=== PATIENT | female | born 1985 | race Caucasian/White ===

== ENCOUNTER → 2017-10-02 | Outpatient (CLI) | payer OTHER ==
[~2017-10-02] MED LIST: PRENTAB26 PO
== END | disposition home or self-care (01) ==
LOC: C.PAPS 07:59
PROVIDERS: ATTEND Obstetrics & Gynecology
DX: Z34.01 Encounter for supervision of normal first pregnancy, first trimester (principal); Z01.419 Encounter for gynecological examination (general) (routine) without abnormal findings

== ENCOUNTER → 2017-10-02 | Outpatient (CLI) | payer OTHER ==
[2017-10-02 13:07] LABS: BASO % 0.2 %; BASO ABS # 0.03 K/uL (0-0.2); EOS % 0.3 %; EOS ABS # 0.05 K/uL (0-0.5); HEMATOCRIT 37.1 % (37-47); HEMOGLOBIN 12.9 g/dL (12.0-16.0); IG# 0.06 K/uL (0.00-0.02); LYMPH % 14.9 %; LYMPH ABS # 2.31 K/uL (1.2-3.4); MEAN CELL VOLUME 87.5 fL (80-100); MEAN CORPUSCULAR HEMOGLOBIN 30.4 pg (25-34); MEAN CORPUSCULAR HGB CONC 34.8 g/dl (32-36); MEAN PLATELET VOLUME 11.8 fL (7.4-10.4); MONO % 6.8 %; MONO ABS # 1.06 K/uL (0.11-0.59); NEUT % 77.4 %; PLATELET COUNT 313 K/uL (130-400); RED CELL DISTRIBUTION WIDTH CV 13.2 % (11.5-14.5); RED CELL DISTRIBUTION WIDTH SD 42.5 fL (36.4-46.3); WHITE BLOOD COUNT 15.51 K/uL (4.8-10.8)
== END | disposition home or self-care (01) ==
LOC: C.LAB1850 11:36
PROVIDERS: ATTEND Obstetrics & Gynecology
DX: Z34.01 Encounter for supervision of normal first pregnancy, first trimester (principal); Z3A.00 Weeks of gestation of pregnancy not specified

== ENCOUNTER → 2017-10-02 | Outpatient (CLI) | payer OTHER | END | disposition home or self-care (01) | LOC: C.LABSPEC 11:01 | PROVIDERS: ATTEND Obstetrics & Gynecology | DX: Z34.01 Encounter for supervision of normal first pregnancy, first trimester (principal); Z3A.00 Weeks of gestation of pregnancy not specified ==

== ENCOUNTER → 2017-11-29 | Outpatient (CLI) | payer OTHER | END | disposition home or self-care (01) | LOC: C.LAB1850 09:46 | PROVIDERS: ATTEND Obstetrics & Gynecology | DX: Z34.02 Encounter for supervision of normal first pregnancy, second trimester (principal) ==

== ENCOUNTER 2018-05-05 19:00 | Outpatient (CLI) | payer OTHER ==
[~2018-05-05] VITALS: Ht 154.9 cm; Wt 61.4 kg
[2018-05-05 19:24] VITALS: Ht 154.9 cm; Wt 61.4 kg
[2018-05-05] MEDS ORDERED: PRENTAB26 PO (20:00)
== END 2018-05-05 21:45 | disposition home or self-care (01) ==
LOC: C.OPB 19:00 → C.LD 19:00 → C.OPB 21:45
PROVIDERS: ATTEND Obstetrics & Gynecology
DX: O36.5930 Maternal care for other known or suspected poor fetal growth, third trimester, not applicable or unspecified (principal); Z3A.38 38 weeks gestation of pregnancy

== ENCOUNTER 2018-05-06 07:33 | Inpatient (IN) | payer OTHER ==
[~2018-05-06] VITALS: Ht 154.9 cm; Wt 61.4 kg
[2018-05-06 08:08] VITALS: Ht 154.9 cm; Wt 61.4 kg
[2018-05-06] MEDS ORDERED: LACTATED RINGER'S 1000ML 1,000 ML IV SCH (08:37)
[2018-05-06] MEDS ORDERED: LACTATED RINGER'S 1000ML 500 ML IV PRN ×2 (08:37→14:32)
[2018-05-06] MEDS ORDERED: LACTATED RINGER'S 1000ML 1,000 ML IV PRN (08:37)
[2018-05-06] MEDS: OXYTOCIN 30 UNITS/500ML NSS IV PRN ×2 (08:54→17:12)
[2018-05-06 09:01] LABS: HEMATOCRIT 31.9 % (37-47); HEMOGLOBIN 10.4 g/dL (12.0-16.0); MEAN CELL VOLUME 83.7 fL (80-100); MEAN CORPUSCULAR HEMOGLOBIN 27.3 pg (25-34); MEAN CORPUSCULAR HGB CONC 32.6 g/dl (32-36); MEAN PLATELET VOLUME 13.3 fL (7.4-10.4); PLATELET COUNT 211 K/uL (130-400); RED CELL DISTRIBUTION WIDTH CV 15.1 % (11.5-14.5); RED CELL DISTRIBUTION WIDTH SD 46.3 fL (36.4-46.3); WHITE BLOOD COUNT 16.15 K/uL (4.8-10.8)
--- NOTE | 2018-05-06 09:36 | Progress Note ---
Progress Note Date of Service May 06, 2018. Progress Note 32yo , BENJA of 05/13/2018, 39.0 weeks GA, here for IUGR induction. course included gestational diabetes and IUGR. Blood type O+, antibody negative , rubella immune, Hep B Negative, GBS-. O: Abdomen: Gravid, vertex, +FHTs : 4.0cm/80%/-1 A/P: 39 weeks GA, IUGR induction, Oxytocin IV, anticipate
[2018-05-06] MEDS ORDERED: FENTANYL CITRATE INJ 50 MCG/1 ML 2 ML VIAL ONE (11:15)
[2018-05-06] MEDS ORDERED: BUPIVACAINE 0.25% 30 ML VIAL ONE (11:15)
[2018-05-06] MEDS ORDERED: EpHEDrine SULFATE INJ 50 MG/ML AMP ONE (11:15)
[2018-05-06] MEDS ORDERED: FENTANYL 2MCG/ML ROPIV 1.25MG/ML 100ML BAG ONE (11:16)
[2018-05-06] MEDS ORDERED: NALOXONE HCL INJ 1 MG in SODIUM CHLORIDE 0.9% 1000ML 1,000 ML IV PRN (14:32)
[2018-05-06] MEDS ORDERED: DiphenhydrAMINE HCL 50 MG/ML VIAL IV PRN (14:45)
[2018-05-06] MEDS ORDERED: NALBUPHINE HCL INJ 10 MG/ML 1ML AMP IV PRN (14:45)
[2018-05-06] MEDS ORDERED: EpHEDrine SULFATE INJ 50 MG/ML AMP IV PRN (14:45)
[2018-05-06] MEDS ORDERED: FENTANYL 2MCG/ML ROPIV 1.25MG/ML 100ML BAG EPI PRN (14:45)
[2018-05-06] MEDS ORDERED: ONDANSETRON INJ 2 MG/ML 2 ML VIAL IV PRN (14:45)
[2018-05-06] MEDS ORDERED: NALOXONE HCL INJ 0.4 MG/1 ML VIAL/CARP IV PRN (14:45)
[2018-05-06] MEDS ORDERED: SUPERCREAM 0.870 % 15GM JAR EXT PRN (16:30)
[2018-05-06] MEDS ORDERED: LANOLIN OINT EXT PRN (16:30)
[2018-05-06] MEDS ORDERED: BENZOCAINE 20% AER SPR 82.5 GM CAN EXT PRN (16:30)
[2018-05-06] MEDS ORDERED: OXYTOCIN 30 UNITS/500ML NSS IV PRN (16:30)
[2018-05-06] MEDS ORDERED: OXYCODONE/ACETAMINOPHEN 5-325 TAB PO PRN (16:30)
--- NOTE | 2018-05-06 17:02 | Anesthesia Procedure Note ---
Anesthesia Epidural Removal Nt Date & Time May 06, 2018 at 17:02 Vital Signs Pain Intensity: 0.0 Notes Mental Status: alert / awake / arousable, participated in evaluation Nausea / Vomiting: adequately controlled Pain: adequately controlled Airway Patency, RR, SpO2: stable & adequate BP & HR: stable & adequate Hydration State: stable & adequate Neuraxial Anesthesia: was administered, sensory block is resolving Anesthetic Complications: no major complications apparent, pt satisfied with anesthetic care Epidural: removed without complications, with tip intact
[2018-05-06] MEDS: IBUPROFEN 600 MG TAB PO PRN ×2 (17:47→22:16)
[2018-05-06] MEDS: DOCUSATE SODIUM 100 MG CAP PO SCH (19:31)
--- NOTE | 2018-05-06 19:43 | DELIVERY SUMMARY ---
DATE OF OPERATION: 05/06/2018 The patient is a 32-year-old white female who presented for induction because of IUGR. Her testing up to this point shows that there was normal fluid as well as reactive nonstress test. She presented for a cervical Teague on the evening of May 05. She presented to labor and delivery at 4 cm dilated the next morning. Pitocin augmentation was begun. Her membranes ruptured for copious amount of clear fluid. She received effective epidural analgesia and then progressed to full dilation. She pushed over intact perineum for delivery of a viable male infant. Mouth and nasopharynx were suctioned after delivery. There was spontaneous crying and the infant was moving all 4 limbs. The infant was placed on the mother's abdomen for further warming and attention. After 30 seconds, the cord was clamped and cut. The placenta was expressed intact with a 3-vessel cord. A second-degree perineal laceration was repaired with 3-0 chromic in the usual fashion. Estimated blood loss was 200 mL. Mother and were doing well after delivery. I attest to the content of the Intraoperative Record and any orders documented therein. Any exception s are noted below.
[2018-05-06 20:10] VITALS: BP 124/78; PULSE 86; TEMP 36.7
[2018-05-06 23:05] VITALS: BP 126/84; PULSE 85; TEMP 36.8
[2018-05-07 04:00] VITALS: BP 122/78; PULSE 94; TEMP 36.8
[2018-05-07] MEDS: IBUPROFEN 600 MG TAB PO PRN ×5 (04:17→23:30)
[2018-05-07] MEDS: ACETAMINOPHEN 325 MG TAB PO PRN ×2 (06:07→15:43)
[2018-05-07 07:05] LABS: HEMATOCRIT 28.3 % (37-47); HEMOGLOBIN 9.2 g/dL (12.0-16.0)
--- NOTE | 2018-05-07 07:14 | Progress Note ---
Subjective May 07, 2018. Subjective conversation w/ patient Ambulation: ambulating normally Voiding: no voiding problems Diet Tolerance: Regular Diet Lochia: Moderate Feeding Type: Breast Feeding Pain: Improving Problem List Medical Problems: (1) 36 weeks gestation of (2) 38 weeks gestation of (3) Decreased movement (4) IUGR (intrauterine growth restriction) affecting care of mother (5) Unfavorable cervix in term Review of Systems Constitutional: No fever, No chills Respiratory: No shortness of breath Cardiac: No chest pain, No palpitations Female : No dysuria Objective Vital Signs Date Time Temp Pulse Resp B/P (MAP) Pulse Ox O2 Delivery O2 Flow Rate FiO2 05/07/18 04:00 36.8 94 18 122/78 (93) Room Air 05/06/18 23:05 36.8 85 18 126/84 (98) Room Air 05/06/18 20:10 36.7 86 18 124/78 (93) Room Air 05/06/18 20:10 Room Air Physical Exam General Appearance: WELL-APPEARING, NO APPARENT DISTRESS Respiratory/Chest: normal breath sounds, no respiratory distress Cardiovascular: regular rate, rhythm Abdomen: soft Fundus: Firm (1 above umbilicus) Extremities: no calf tenderness Laboratory Results Last 24 Hours Test 05/06/18 08:44 05/07/18 06:32 White Blood Count 16.15 K/uL Red Blood Count 3.81 M/uL Hemoglobin 10.4 g/dL 9.2 g/dL Hematocrit 31.9 % 28.3 % Mean Corpuscular Volume 83.7 fL Mean Corpuscular Hemoglobin 27.3 pg Mean Corpuscular Hemoglobin Concent 32.6 g/dl RDW Standard Deviation 46.3 fL RDW Coefficient of Variation 15.1 % Platelet Count 211 K/uL Mean Platelet Volume 13.3 fL Medications Current Inpatient Medications Medications (Trade) Dose Ordered Sig/Claribel Route Start Time Stop Time Status Last Admin Dose Admin Lactated Ringer's 1,000 ml @ 125 mls/hr Q8H IV 05/06/18 08:37 05/08/18 08:36 Lactated Ringer's 1,000 ml @ 999 mls/hr Q1H1M PRN IV 05/06/18 08:37 06/05/18 08:36 Oxytocin (Pitocin IV) 30 units UD PRN IV 05/06/18 08:45 06/05/18 08:44 05/06/18 17:12 30 UNITS Lactated Ringer's 500 ml @ 999 mls/hr Q31M PRN IV 05/06/18 08:37 06/05/18 08:36 Fentanyl/ Ropivacaine (Fentanyl 2MCG/ Ml/Ropivacaine 1.25MG/ML) 100 ml PRN PRN EPI 05/06/18 14:45 05/07/18 14:44 Naloxone HCl (Narcan Inj) 0.1 mg UD PRN IV 05/06/18 14:45 05/07/18 14:44 Lactated Ringer's 500 ml @ 999 mls/hr Q31M PRN IV 05/06/18 14:32 05/07/18 14:31 Ephedrine Sulfate (EpHEDrine SULFATE INJ) 10 mg Q5M PRN IV 05/06/18 14:45 05/07/18 14:44 Diphenhydramine HCl (Benadryl Inj) 25 mg Q6H PRN IV 05/06/18 14:45 05/07/18 14:44 Nalbuphine HCl (Nubain Inj) 5 mg Q10M PRN IV 05/06/18 14:45 05/07/18 14:44 Naloxone HCl 1 mg/ Sodium Chloride 1,002.5 ml @ 50 mls/hr Q20H3M PRN IV 05/06/18 14:32 05/07/18 14:31 Ondansetron HCl (Zofran Inj) 4 mg Q6H PRN IV 05/06/18 14:45 05/07/18 14:44 Oxytocin (Pitocin IV) 30 units UD PRN IV 05/06/18 16:30 06/05/18 16:29 Benzocaine (Dermoplast Aero Spr) 1 appln PRN PRN EXT 05/06/18 16:30 06/05/18 16:29 05/07/18 04:18 82.5 APPLN Cocaine HCl (Supercream 0.870% Cr) BID PRN EXT 05/06/18 16:30 05/20/18 16:29 Lanolin (Lanolin Oint) PRN PRN EXT 05/06/18 16:30 06/05/18 16:29 Prenat Multivit/ Refrigerator Car Icer/Iron/Folic Ac ( Vitamin Tab) 1 tab DAILY PO 05/07/18 08:00 06/06/18 07:59 Ibuprofen (Motrin Tab) 600 mg Q4H PRN PO 05/06/18 16:30 06/05/18 16:29 05/07/18 04:17 600 MG Acetaminophen (Tylenol Tab) 650 mg Q6H PRN PO 05/06/18 16:30 06/05/18 16:29 05/07/18 06:07 650 MG Oxycodone/ Acetaminophen (Percocet 5-325mg Tab) 1 tab Q4H PRN PO 05/06/18 16:30 05/20/18 16:29 Bisacodyl (Dulcolax Tab) 5 mg 20 PO 05/07/18 20:00 05/07/18 20:01 Docusate Sodium (coLACE CAP) 100 mg BID PO 05/06/18 20:00 06/05/18 19:59 05/06/18 19:31 100 MG Ferrous Sulfate (Feosol Tab) 325 mg QAM PO 05/07/18 08:00 06/06/18 07:59 Assessment and Plan Post- Day#: 1 Continue Routine Care: Analgesia prn continue current care plan.Resident Physician Supervision Note: I was present with Dr. Espinosa during the history and exam. I discussed the case with the resident and agree with the findings and plan as documented in the note. Any exceptions or clarifications are listed here: [None] Documented By: Ariana Garrison Ambulation encouraged. Resident Tracking Resident Involvement: Resident Care Provided Care Provided: OB Delivery
[2018-05-07 08:00] VITALS: BP 106/71; PULSE 82; TEMP 36.8; O2SAT 100
[2018-05-07] MEDS: DOCUSATE SODIUM 100 MG CAP PO SCH ×2 (08:18→20:10)
[2018-05-07] MEDS: PRENATAL VITAMIN TAB PO SCH (08:18)
[2018-05-07] MEDS: FERROUS SULFATE 325 MG TAB PO SCH (08:18)
[2018-05-07 12:45] VITALS: BP 124/80; PULSE 82; TEMP 36.6; O2SAT 100
[2018-05-07 15:50] VITALS: BP 125/77; PULSE 85; TEMP 36.7
[2018-05-07] MEDS ORDERED: BISACODYL 5 MG TABEC PO SCH (20:00)
[2018-05-07 20:05] VITALS: BP 140/83; PULSE 99; TEMP 36.7; O2SAT 100
[2018-05-07 23:25] VITALS: BP 121/76; PULSE 99; TEMP 36.7
[2018-05-08] MEDS: IBUPROFEN 600 MG TAB PO PRN ×2 (06:05→12:20)
--- NOTE | 2018-05-08 07:46 | Progress Note ---
Subjective May 08, 2018. Subjective conversation w/ patient Ambulation: ambulating normally Voiding: no voiding problems Passing Gas: Yes Diet Tolerance: Regular Diet Lochia: Small Feeding Type: Breast Feeding Pain: Improving Problem List Medical Problems: (1) 36 weeks gestation of (2) 38 weeks gestation of (3) Decreased movement (4) IUGR (intrauterine growth restriction) affecting care of mother (5) Unfavorable cervix in term Review of Systems Constitutional: No fever, No chills Respiratory: No shortness of breath Cardiac: No chest pain, No palpitations Abdomen: No nausea, No vomiting Female : No dysuria Objective Vital Signs Date Time Temp Pulse Resp B/P (MAP) Pulse Ox O2 Delivery O2 Flow Rate FiO2 05/07/18 23:25 36.7 99 18 121/76 (91) Room Air 05/07/18 23:25 Room Air 05/07/18 20:05 100 Room Air 05/07/18 20:05 36.7 99 16 140/83 (102) 100 Room Air 05/07/18 15:50 36.7 85 16 125/77 (93) Room Air 05/07/18 15:50 Room Air 05/07/18 12:45 36.6 82 16 124/80 (95) 100 Room Air 05/07/18 08:15 Room Air 05/07/18 08:00 36.8 82 18 106/71 (83) 100 Room Air Physical Exam General Appearance: WELL-APPEARING, NO APPARENT DISTRESS Respiratory/Chest: normal breath sounds, no respiratory distress Cardiovascular: regular rate, rhythm Abdomen: soft Fundus: Firm (1 above umbilicus) Extremities: no calf tenderness Medications Current Inpatient Medications Medications (Trade) Dose Ordered Sig/Claribel Route Start Time Stop Time Status Last Admin Dose Admin Lactated Ringer's 1,000 ml @ 125 mls/hr Q8H IV 05/06/18 08:37 05/08/18 08:36 Lactated Ringer's 1,000 ml @ 999 mls/hr Q1H1M PRN IV 05/06/18 08:37 06/05/18 08:36 Oxytocin (Pitocin IV) 30 units UD PRN IV 05/06/18 08:45 06/05/18 08:44 05/06/18 17:12 30 UNITS Lactated Ringer's 500 ml @ 999 mls/hr Q31M PRN IV 05/06/18 08:37 06/05/18 08:36 Oxytocin (Pitocin IV) 30 units UD PRN IV 05/06/18 16:30 06/05/18 16:29 Benzocaine (Dermoplast Aero Spr) 1 appln PRN PRN EXT 05/06/18 16:30 06/05/18 16:29 05/07/18 04:18 82.5 APPLN Cocaine HCl (Supercream 0.870% Cr) BID PRN EXT 05/06/18 16:30 05/20/18 16:29 Lanolin (Lanolin Oint) PRN PRN EXT 05/06/18 16:30 06/05/18 16:29 Prenat Multivit/ Director Ehs/Iron/Folic Ac ( Vitamin Tab) 1 tab DAILY PO 05/07/18 08:00 06/06/18 07:59 05/07/18 08:18 1 TAB Ibuprofen (Motrin Tab) 600 mg Q4H PRN PO 05/06/18 16:30 06/05/18 16:29 05/08/18 06:05 600 MG Acetaminophen (Tylenol Tab) 650 mg Q6H PRN PO 05/06/18 16:30 06/05/18 16:29 05/07/18 15:43 650 MG Oxycodone/ Acetaminophen (Percocet 5-325mg Tab) 1 tab Q4H PRN PO 05/06/18 16:30 05/20/18 16:29 Docusate Sodium (coLACE CAP) 100 mg BID PO 05/06/18 20:00 06/05/18 19:59 05/07/18 20:10 100 MG Ferrous Sulfate (Feosol Tab) 325 mg QAM PO 05/07/18 08:00 06/06/18 07:59 05/07/18 08:18 325 MG Assessment and Plan Problem List Medical Problems: (1) 36 weeks gestation of (2) 38 weeks gestation of (3) Decreased movement (4) IUGR (intrauterine growth restriction) affecting care of mother (5) Unfavorable cervix in term Post- Day#: 2 Continue Routine Care: Analgesia PRN Escalate diet as needed Ambulation encouraged. Discharge today. Resident Physician Supervision Note: I interviewed and examined the patient. Discussed with Dr. maxwell and agree with findings and plan as documented in the note. Any exceptions or clarifications are listed here: [None] Documented By: Roni Bradley
--- NOTE | 2018-05-08 07:49 | Discharge Instructions ---
Discharge Instructions Date of Service May 08, 2018. Admission Reason for Admission: Induction Discharge Discharge Diagnosis / Problem: Vaginal Delivery Discharge Goals Goal(s): Routine recovery after delivery Medications Continue Dispensed Medications: supercream, dermaplast, tucks, lansinoh Activity Recommendations Activity Limitations: per Instructions/Follow-up section . Instructions / Follow-Up Instructions / Follow-Up ACTIVITY RECOMMENDATIONS: * Gradual return to full activity over the next 2-3 weeks. * No lifting - nothing heavier than baby over the next 2-3 weeks. * Do not engage in vigorous exercise, sexual activity or sports until cleared by your physician. * Do not drive or operate any motorized equipment until cleared by your physician. * You may shower/bathe daily. MEDICATIONS: For discomfort or pain, you may use Acetaminophen (Tylenol), Ibuprofen (Advil), or Naproxen (Aleve) following the package directions. For constipation you may use Colace following the package directions. BREAST CARE: If you are not breast feeding: * Wear a supportive bra 24 hours a day for one to two weeks. * Avoid stimulating your breasts and nipples as much as possible during the first few weeks after delivery. * When taking a shower, have the warm water hit your back, not breasts. * When your breasts feel full, apply ice packs. Usually three to four times a day helps ease the discomfort. * Take a mild pain medication (Tylenol / Motrin) when you are uncomfortable. If breast feeding: * Use breast milk to lubricate nipples. Lansinoh cream may be used for sore nipples. You do not need to remove cream prior to breast feeding. If using a different brand of cream, check the label for directions regarding removal of cream prior to nursing. * Wear a supportive bra. * If having problems with breasts or breast feeding, call a oracle database consultant or your health care provider. EPISIOTOMY CARE: After delivery, if you have an episiotomy (stitches), the following steps will ease discomfort and aid healing. * For the first 24 hours after delivery, place ice packs next to your episiotomy to help reduce swelling. * After the first 24 hour-period, sitz baths, either portable or in the tub, are suggested. A shower with a shower arm sprayed over the episiotomy may be comforting. * Deepika care should be done after each voiding and bowel movement. Squirt warm water from a plastic bottle over the perineum (region of the body between the anus and urinary opening) and pat dry. * Use Dermoplast to ease discomfort. Shake container. Talco directly over the episiotomy. Place a Tucks on a clean sanitary pad next to your episiotomy. SPECIAL CARE INSTRUCTIONS: When you are discharged from the hospital, it is important for you to follow the instructions listed below: * During the first week at home, you should be able to care for yourself and your baby. In addition, the usual light household activities are encouraged. * Limit your activities to the way you feel. Do not try to clean the house or move furniture. Be sensible. * If you actively engage in sports and have done so up until the time of your delivery, you may resume these activities as soon as you feel able. This may take up to one month or even longer. Use good judgment. * Continue to take your vitamins for at least six weeks after the of your baby. * Your diet need not be limited unless you were on a special diet before your delivery. Breast-feeding mothers need around 2500 calories per day and at least 64-80 ounces of fluid per day (8 to 10 glasses). * You should eat foods from the four major food groups. Crash diets or fad diets are to be avoided. Eating lean meats, fresh fruits and vegetables, low-fat dairy products, high fiber foods and a regular exercise program, will help you get back to your pre- weight without putting your health at risk. * Constipation is sometimes a problem after delivery. Take a mild laxative as needed. If breast feeding, Milk of Magnesia is acceptable to use. You may use a suppository or Fleets enema if no episiotomy. * A daily shower or tub bath is suggested. Be sure to thoroughly and gently dry the perineum. * A bloody vaginal discharge will usually continue until around four weeks post . A small amount of bleeding may continue for as long as six weeks. Vaginal discharge changes from the bright red bleeding after delivery to pink then brownish and finally yellowish-pink before becoming white and disappearing. * Bleeding may increase with activity. Your first period may come in 4-8 weeks. If you are breast feeding, your period may be delayed even longer. * Lowry (sex) can begin whenever both you and your partner feel comfortable and do not have any form of genital infection. It is recommended that you wait at least six weeks for internal and external healing to occur. If you have questions, please talk to your health care practitioner. A condom should be used to prevent infection and . * Foreplay, gentle intercourse and lubrication is very important the first several times to prevent pain. A water-based lubricant such as K-Y jelly or Astroglide may be used. * If you have RH negative blood and your baby is RH positive, you will receive RHOGAM by injection prior to discharge. The nurse will give you a card to keep with you that has the date and place that you received RHOGAM after delivery. * During your care, you had a Rubella screen done to check for the presence of rubella antibodies in your blood. If your test was negative, you will receive a Rubella vaccine prior to discharge. This vaccine may cause a fever, soreness at the injection site and flu-like symptoms. If these symptoms persist, notify your health care practitioner. is not advised for one month after a Rubella vaccine. * Verbalizes understanding of car seat law as reviewed with patient nursing. * Car Seat hand-out given and reviewed with patient by nursing. * Shaken baby information reviewed with patient by nursing. Call you doctor if: * Heavy bleeding (saturating several pads an hour) or passing clots the size of your fist. * A fever >101 degrees F (38.3 degrees C) on two occasions four hours apart and /or chills. * Unusual pain in the pelvic or vaginal areas. * "Baby Blues" lasting longer than two weeks. If you have any questions or concerns, call your health care practitioner at . FOLLOW UP VISIT: * Please call the office at to schedule a 6 week examination. It is important you keep this appointment. It is important for you to make arrangements for either yearly or twice yearly check-ups thereafter. Current Hospital Diet Patient's current hospital diet: Regular OB Diet Discharge Diet Recommended Diet: Regular OB Diet Pending Studies Studies pending at discharge: no Medical Emergencies . Who to Call and When: Medical Emergencies: If at any time you feel your situation is an emergency, please call 911 immediately. . Non-Emergent Contact Non-Emergency issues call your: Primary Care Provider . . "Provider Documentation" section prepared by Fifi Espinosa. .
[2018-05-08 08:00] VITALS: BP 114/75; PULSE 84; TEMP 36.6; O2SAT 100
[2018-05-08] MEDS: PRENATAL VITAMIN TAB PO SCH (08:04)
[2018-05-08] MEDS: DOCUSATE SODIUM 100 MG CAP PO SCH (08:04)
[2018-05-08] MEDS: FERROUS SULFATE 325 MG TAB PO SCH (08:04)
[2018-05-08 15:30] VITALS: BP 131/74; PULSE 80; TEMP 36.6
[2018-05-08 16:30] VITALS: BP_DIAS 74; PULSE 80; TEMP 36.6
== END 2018-05-08 16:30 | disposition home or self-care (01) | DRG 775 ==
LOC: EEVIPCON 07:33 → C.LD 07:33 → C.OBG 20:22
PROVIDERS: ADMIT Obstetrics & Gynecology; ATTEND Obstetrics & Gynecology
PROC: 0KQM0ZZ Repair Perineum Muscle, Open Approach (ICD-10-PCS; principal; 2018-05-06)
PROC: 10E0XZZ Delivery of Products of Conception, External Approach (ICD-10-PCS; principal; 2018-05-06)
PROC: 3E0P7GC Introduction of Other Therapeutic Substance into Female Reproductive, Via Natural or Artificial Opening (ICD-10-PCS; 2018-05-06)
DX: O36.5930 Maternal care for other known or suspected poor fetal growth, third trimester, not applicable or unspecified (principal); O24.419 Gestational diabetes mellitus in pregnancy, unspecified control; O36.8130 Decreased fetal movements, third trimester, not applicable or unspecified; O70.1 Second degree perineal laceration during delivery; Z37.0 Single live birth; Z3A.39 39 weeks gestation of pregnancy

== ENCOUNTER 2022-09-06 18:50 | Inpatient (IN) ==
[2022-09-06] MEDS ORDERED: OXYTOCIN 30 UNITS/500 ML BAG IV PRN ×2 (19:42)
[2022-09-06] MEDS ORDERED: LACTATED RINGER'S 1,000 ML IV PRN (19:42)
[2022-09-06] MEDS ORDERED: LIDOCAINE 1% LOCAL 20 ML VIAL INFIL PRN (19:42)
[2022-09-06] MEDS ORDERED: PENICILLIN G POTASSIUM 6 MU in DEXTROSE 5% 250 ML IV STA (19:45)
[2022-09-06 20:11] LABS: Hematocrit (blood only) 35.1 % (34.1-44.9); Hemoglobin 12.2 g/dl (12.0-16.0); Mean Corpuscular Hemoglobin 30.3 pg (25.0-34.0); Mean Corpuscular Hgb Conc 34.8 g/dL (32.0-36.0); Mean Corpuscular Volume 87.1 fL (80.0-100.0); Mean Platelet Volume 12.7 fL (9.4-12.3); Platelet Count 237 K/uL (130-400); RDW Coefficient of Variation 14.1 % (11.5-14.5); RDW Standard Deviation 44.4 fL (36.4-46.3); Red Blood Count 4.03 M/uL (3.93-5.22); White Blood Count 17.91 K/ul (4.8-10.8)
--- NOTE | 2022-09-06 20:36 | History & Physical Report ---
Date of Service September 06, 2022 Assessment & Plan (1) Supervision of elderly multigravida: Plan: Admit to L&D. Labs, EFM/toco, IV. Penicillin for GBS+. Will check glucose Q1h in active labor. OK to ambulate, if no increase in ctx she is agreeable to pitocin. Plans for epidural. Admission and Anticipated Discharge Date Admission Date: September 06, 2022 History of Present Illness Chief Complaint: leaking fluid Primary Care Provider: Dara Boogie, 37yo @ 38 01/05, leaking clear fluid and pelvic pressure. + movement. No vaginal bleeding. Feeling ctx every few minutes. GDM in prior *Monthly Growth ultrasounds @ 24wks AMA *Weekly NST's @ 36wks. 6cm suspected right ovarian Dermoid cyst *Diagnosed first trimester, follow at 20wk, consider pp removal GBS Bacteriuria Flu shot given 07/13/22 - [place] Allergies Allergy/AdvReac Type Severity Reaction Status Date / Time No Known Allergies Allergy Verified 09/04/22 09:05 Home Medications Medication Instructions Recorded Confirmed Type prenat.vits,luz marina,[id number] 1 tab PO DAILY 01/31/22 09/04/22 History acetone (urine) test (Ketone Urine #50 ea 03/28/22 09/04/22 Rx Test strips) blood sugar diagnostic (OneTouch #150 ea 03/28/22 09/04/22 Rx Verio test strips) lancets 33 gauge (OneTouch Delica #150 ea 03/28/22 09/04/22 Rx Lancets) Patient History Medical History (Updated 08/12/22 @ 09:53 by Adri Silva MD, FACOG) Abnormal biochemical finding on screening of mother, antepartum Dermoid cyst 6cm noted on 7 week ultrasound; re checked at 20 weeks; stable. Encounter for supervision of normal first in third trimester Gestational diabetes mellitus (GDM), antepartum Intrauterine growth restriction, antepartum hx of with first IUGR (intrauterine growth restriction) affecting care of mother with first Well woman exam with routine gynecological exam Surgical History (Updated 08/12/22 @ 09:45 by Bea Mireles, SOPHIA) No pertinent past surgical history Family History Mother Diabetes pre diabetic Social History Smoking Status: Never smoker Hx Alcohol Use: No Hx Substance Use: No Preferred Language: Kazakh marital status: marital status details: Jan (43) [phone] Current Living Situation: Spouse Current Living Situation Comment: livwes with spouse, son no pets. current occupational status: employed current occupation: cad manager Feels Safe at Home: Yes Review of Systems All systems reviewed & are unremarkable except as noted in HPI & below Physical Exam Physical Exam: cervix 2-3cm per RN FHT Cat 1 [place] Q3-4 min Constitutional: WD/WN, vitals as above Respiratory: normal respiratory effort, lungs clear to auscultation no respiratory distress Cardiovascular: Rate/Rhythm: regular rate and regular rhythm Gastrointestinal (Abdomen): Inspection/Auscultation: abdomen normal to inspection Percussion/Palpation: abdomen soft; abdomen nontender Gravid. No s/s chorio or abruption. Skin: no rashes, warm and dry Psychiatric: A+Ox3, euthymic affect Results & Data ([facility]) Vital Signs (Past 12 Hours) Vital Signs Pulse BP 09/06/22 19:04 74 131/56 L Coding Level of Care Code None Diagnoses Supervision of elderly multigravida O09.529
[2022-09-06] MEDS ORDERED: SODIUM CHLORIDE 0.9% INJ 10 ML VIAL ONE (21:46)
[2022-09-06] MEDS ORDERED: fentaNYL citrate 100 MCG/2 ML VIAL ONE (21:46)
[2022-09-06] MEDS ORDERED: ePHEDrine sulfate 50 MG/ML AMP ONE (21:46)
[2022-09-06] MEDS ORDERED: BUPIVACAINE 0.25% 30 ML VIAL ONE (21:47)
[2022-09-06] MEDS ORDERED: fentaNYL 2MCG/ML ROPIVACAINE 1.25MG/ML 100 ML BAG EPI ONE (21:47)
[2022-09-06] MEDS ORDERED: LIDOCAINE 2%/EPINEPHRINE 1:200,000 20 ML SDV ONE (21:47)
--- NOTE | 2022-09-06 22:13 | Anesthesiology Consultation ---
Date of Service September 06, 2022 Assessment & Plan Chart Review Chart Review: Patient NOT seen in Pre Admission Testing and Acceptable Risk for Labor Epidural Consults Requested none ASA ASA2 Proposed Anesthesia Anesthesia Type: Labor Epidural and CSE Risk / Benefits Reviewed With: PT / POA / Parent / Guardian, Accepts Plan and Informed Consent Obtained History Height/Weight Height: 5 ft 1 in Weight: 58.967 kg Allergies Allergy/AdvReac Type Severity Reaction Status Date / Time No Known Allergies Allergy Verified 09/04/22 09:05 Medications Home Medications Medication Instructions Recorded Confirmed Last Taken prenat.vits,luz marina,[id number] 1 tab PO DAILY 01/31/22 09/06/22 09/06/22 08:00 acetone (urine) test (Ketone Urine #50 ea 03/28/22 09/04/22 Unknown Test strips) blood sugar diagnostic (OneTouch #150 ea 03/28/22 09/04/22 Unknown Verio test strips) lancets 33 gauge (OneTouch Delica #150 ea 03/28/22 09/04/22 Unknown Lancets) Active Medications Generic Name Dose Route Start Last Admin Trade Name Freq PRN Reason Stop Dose Admin Lactated Ringer's 1,000 mls @ 125 mls/hr 09/06/22 19:42 09/06/22 21:35 Lr IV 09/08/22 19:41 125 mls/hr .Q8H PRN Administration L&D Protocol Protocol NPO Date Last Intake of Fluids: 09/06/22 Time Last Intake of Fluids: 21:00 Date Last Intake of Solids: 09/06/22 Time Last Intake of Solids: 19:00 Past Medical History Medical History Abnormal biochemical finding on screening of mother, antepartum Dermoid cyst 6cm noted on 7 week ultrasound; re checked at 20 weeks; stable. Encounter for supervision of normal first in third trimester Gestational diabetes mellitus (GDM), antepartum Intrauterine growth restriction, antepartum hx of with first IUGR (intrauterine growth restriction) affecting care of mother with first Well woman exam with routine gynecological exam Exercise / Class Metabolic Activity II 4-5 Yardwork/Stairs/Walk up hill Past Family History Family History Mother Diabetes pre diabetic Past Surgical History Surgical History No pertinent past surgical history Past Anesthesia History No Hx of Anesthesia Complications and No Family Hx of Anesthesia Complications History of PONV No Hx of PONV and No Hx of Motion Sickness Social History Smoking Status: Never smoker Do You Dip or Chew Tobacco: No Hx Alcohol Use: No Hx Substance Use: No substance use type: does not use Review of Systems no chest pain or sob Physical Exam Vital Signs Last Vital Signs Temp 36.8 C 09/06/22 20:36 Pulse 86 09/06/22 22:08 Resp 18 09/06/22 20:36 BP 131/56 L 09/06/22 19:04 Pulse Ox 100 09/06/22 22:08 ENMT Mouth: no TMJ abnormality Thyromental Distance: > or= 3.5 Finger Breadths Mallampati Class: II Neck normal visual inspection Respiratory normal respiratory effort Auscultation: lungs clear to auscultation bilaterally Cardiovascular Rate/Rhythm: regular rate and regular rhythm Musculoskeletal Spine: normal cervical ROM Neurologic moves all extremities Psychiatric Orientation: alert and oriented x 3 Testing Laboratory Results 09/06/22 20:01
[2022-09-06] MEDS ORDERED: PENICILLIN G POTASSIUM 3 MU in DEXTROSE 5% 100 ML IV PRN (22:42)
--- NOTE | 2022-09-06 22:56 | Labor Progress Brief Note ---
Date of Service September 06, 2022 Subjective Comfortable with epidural. FHT Cat 1 Noonday Q 4-6 min. SVE 4/100/-1/soft/mid, EFW 7-8 Will start pitocin, patient agreeable with plan. Assessment & Plan Admission and Anticipated Discharge Date Admission Date: September 06, 2022 Results & Data ([facility]) Vital Signs (Past 12 Hours) Vital Signs Temp Pulse Resp BP Pulse Ox 09/06/22 20:36 36.8 C 18 09/06/22 22:53 99 09/06/22 22:53 80 09/06/22 22:53 89 125/72 09/06/22 22:48 80 99 09/06/22 22:43 80 99 09/06/22 22:38 83 99 09/06/22 22:37 83 104/59 L 09/06/22 22:34 76 100/51 L 09/06/22 22:33 78 100 09/06/22 22:30 88 100/59 L 09/06/22 22:28 88 100 09/06/22 22:23 85 100 09/06/22 22:20 86 121/66 09/06/22 22:18 90 100 09/06/22 22:14 85 89 L 09/06/22 22:13 94 H 100 09/06/22 22:08 86 100 09/06/22 19:04 74 131/56 L Coding Level of Care Code None
[2022-09-07] MEDS ORDERED: BENZOCAINE 20% AER SPR 82.5 GM CAN EXT ONE (02:41)
[2022-09-07] MEDS ORDERED: IBUPROFEN 600 MG TAB PO ONE (02:41)
[2022-09-07] MEDS ORDERED: ACETAMINOPHEN 325 MG TAB PO PRN (02:43)
[2022-09-07] MEDS ORDERED: HYDROCORTISONE ACETATE 25 MG SUPP PR PRN (02:43)
[2022-09-07] MEDS ORDERED: oxyCODONE/ACETAMINOPHEN 5mg/325mg TAB PO PRN (02:43)
[2022-09-07] MEDS ORDERED: OXYTOCIN 30 UNITS/500 ML BAG IV PRN (02:43)
[2022-09-07] MEDS ORDERED: BENZOCAINE 20% AER SPR 82.5 GM CAN EXT PRN (02:43)
[2022-09-07] MEDS ORDERED: DIPHTHERIA/TETANUS/PERTUSSIS 0.5 ML SYR/VIAL IM ONE (02:43)
--- NOTE | 2022-09-07 02:46 | Delivery Summary ---
Vaginal Delivery Summary Date of Service September 07, 2022 Vaginal Delivery Summary Vaginal Delivery Summary: Pre-delivery diagnoses: 37yo @ 40 02/04, spontaneous labor, GBS+ Post-delivery diagnoses: same Procedure: spontaneous vaginal delivery, repair of partial 3rd degree perineal laceration Surgeon: Mai Amado DO Complications: none Findings: Viable male . For Apgars and weight, please see nursery records Estimated blood loss: 300ml Description of delivery: The patient progressed to complete with epidural anesthesia. She then began to push. She spontaneously vaginally delivered a viable from the cephalic presentation. The head delivered in UZMA position. The anterior shoulder delivered, followed by the posterior shoulder, followed by the body. The baby was placed on mother's abdomen and a spontaneous cry was heard. Delayed cord clamping was employed, and the cord was doubly clamped and cut. Cord blood was obtained. The placenta was delivered spontaneously intact with a 3-vessel cord. The uterus and vagina were swept of clots and debris. IV pitocin was given. The uterus became firm. The cervix, vagina, and perineum were inspected and a partial 3rd degree perineal laceration was noted - the superior aspect of anal sphincter muscle was partially torn, approx 20% of the muscle torn. This was reapproximated with a [id number] stitch of the capsule with 3-0 chromic suture. The remaining laceration was sánchez pproximated with 3-0 Vicryl in standard fashion. Excellent hemostasis was observed. The mother and baby are recovering in stable and good condition in the room. Sponge, needle and instrument counts were correct x 2. Mai Amado DO [facility] [place]
[2022-09-07] MEDS: IBUPROFEN 600 MG TAB PO PRN ×4 (06:43→23:18)
--- NOTE | 2022-09-07 06:56 | Anesthesia Procedure Note ---
Date of Service September 07, 2022 Anesthesia Post Epidural Note Vital Signs Vital Signs: Temp Pulse Resp BP Pulse Ox O2 Del Method 37.0 C 91 H 18 117/70 88 L 09/07/22 04:00 09/07/22 04:00 09/07/22 04:00 09/07/22 04:00 09/07/22 00:33 09/07/22 04:00 Pain Intensity Bilateral Episiotomy/Laceration: Pain Intensity: 2 Notes Mental Status: alert / awake / arousable and participated in evaluation Patient Amnestic to Procedure: No Nausea / Vomiting: adequately controlled Pain: adequately controlled Airway Patency, RR, SpO2: stable & adequate BP & HR: stable & adequate Hydration State: stable & adequate Neuraxial Anesthesia: was administered and sensory block is resolving Anesthetic Complications: no major complications apparent and Pt Satisfied with anesthetic care Epidural: Removed without complications and With tip intact
[2022-09-07] MEDS: PRENATAL VITAMIN 1 TAB PO SCH (08:39)
[2022-09-07] MEDS: DOCUSATE SODIUM 100 MG CAP PO SCH ×2 (08:39→20:35)
[2022-09-08] MEDS: IBUPROFEN 600 MG TAB PO PRN ×2 (06:11→13:13)
--- NOTE | 2022-09-08 06:56 | Obstetrical Progress Note ---
Date of Service <Anurag Harper DO - Last Filed: 09/08/22 07:41> September 08, 2022 Assessment & Plan <Anurag Harper DO - Last Filed: 09/08/22 07:41> (1) Vaginal delivery: - Feels well today. Eating well, voiding well, ambulating well. - Pain well controlled with ibuprofen 600mg Q4H PRN - Routine care -- OOB, ambulation, diet progression as tolerated - After discharge will have 6 week follow-up with Dr. Amado - Will D/C today. Day #:: 1 <Adri Silva MD, FACOG - Last Filed: 09/08/22 07:43> (1) Vaginal delivery: Subjective <Anurag Harper DO - Last Filed: 09/08/22 07:41> Ambulation: ambulating normally Voiding: no voiding problems Passing Gas:: Yes Diet Tolerance:: regular diet Lochia:: Small Feeding Type:: breast feeding Current Pain Level(1-10): 2 Review of Systems Denies fever, chills, sweats Denies shortness of breath, difficulty breathing, chest pain, palpitations, chest pressure. Denies breast pain. Denies dysuria. Denies headache or changes in vision. Physical Exam <Anurag Harper DO - Last Filed: 09/08/22 07:41> General: Alert, oriented. No acute distress. Cardiac: Regular rate and rhythm, no murmurs/rubs/gallops. Respiratory: Clear to auscultation bilaterally a/p, no wheezes/rales/rhonchi. No increased work of breathing. Symmetrical chest rise. No respiratory distress. Abdomen: Soft, nontender, nondistended. Bowel sounds present. Uterus: Uterine fundus firm, palpable 2 cm below umbilicus. Lower Extremities: No lower extremity edema or swelling. No deep calf pain. Villa's negative bilaterally. Results & Data ([facility]) <Anurag Harper DO - Last Filed: 09/08/22 07:41> Vital Signs (Past 12 Hours) Vital Signs Temp Pulse Resp BP BP Pulse Ox O2 Del Method 09/07/22 23:25 36.7 C 70 18 109/74 98 Room Air 09/07/22 19:25 36.9 C 87 16 108/70 Room Air <Adri Silva MD, FACOG - Last Filed: 09/08/22 07:43> Co-Signing Physician Notes Resident Physician Supervision Note: I interviewed and examined the patient. Discussed with Dr. Harper and agree with findings and plan as documented in the note. Any exceptions or clarifications are listed here: Doing well. Plan d/c. Instructions given. Documented By: Adri Silva MD, FACOG Resident Activity Tracking <Anurag Harper, - Last Filed: 09/08/22 07:41> Resident Involvement: Resident Care Provided Care Provided: OB Delivery
[2022-09-08] MEDS: DOCUSATE SODIUM 100 MG CAP PO SCH (07:39)
[2022-09-08] MEDS: PRENATAL VITAMIN 1 TAB PO SCH (07:39)
[2022-09-08 08:00] LABS: Hemoglobin 11.2 g/dl (12.0-16.0)
[2022-09-08] MEDS ORDERED: bisacodyL 5 MG TABEC PO SCH (20:00)
[2022-09-09] MEDS ORDERED: bisacodyL 10 MG SUPP PR PRN (02:43)
== END 2022-09-08 14:00 | disposition home or self-care (01) | DRG 768 ==
LOC: OPB 18:50 → 4S1 18:51 → 4E2 09-07 03:30